=== PATIENT | female | born 1940 | race Caucasian/White ===

== ENCOUNTER → 2019-04-03 14:56 | Outpatient (BNVA) | payer MEDICARE, SELFPAY | PROVIDERS: Family Provider Registered Nurse; PCP Registered Nurse; Visit Provider Registered Nurse | DX: R10.31 Right lower quadrant pain (principal); R10.32 Left lower quadrant pain | CPT/HCPCS: 81003 ==

== ENCOUNTER 2019-07-05 10:28 | Outpatient (RCR) | payer MEDICARE, SELFPAY | END 2019-07-09 23:59 | disposition home or self-care (01) | LOC: SPT 10:28 | PROVIDERS: PCP Registered Nurse; Visit Provider Chiropractor | DX: M25.552 Pain in left hip (principal) | CPT/HCPCS: 97161; 97530 ==

== ENCOUNTER 2019-07-10 06:00 | Outpatient (RCR) | payer MEDICARE, SELFPAY | END 2019-08-08 23:59 | disposition home or self-care (01) | LOC: SPT 06:00 | PROVIDERS: PCP Registered Nurse; Visit Provider Chiropractor | DX: M25.552 Pain in left hip (principal) | CPT/HCPCS: 97110 ==

== ENCOUNTER 2019-08-09 06:00 | Outpatient (RCR) | payer MEDICARE, SELFPAY | END 2019-09-08 23:59 | disposition home or self-care (01) | LOC: SPT 06:00 | PROVIDERS: PCP Registered Nurse; Referring Provider Chiropractor; Visit Provider Chiropractor | DX: M25.552 Pain in left hip (principal); M25.561 Pain in right knee | CPT/HCPCS: 97110 ==

== ENCOUNTER 2019-09-09 06:00 | Outpatient (RCR) | payer MEDICARE, SELFPAY | END 2019-10-09 23:59 | disposition home or self-care (01) | LOC: SPT 06:00 | PROVIDERS: PCP Registered Nurse; Referring Provider Chiropractor; Visit Provider Chiropractor | DX: M25.552 Pain in left hip (principal); M25.561 Pain in right knee | CPT/HCPCS: 97110 ==